=== PATIENT | female | born 1975 | race African-American/Black ===

== ENCOUNTER 2016-12-06 05:15 | Emergency (ER) | payer BC ==
--- NOTE | ~2016-12-06 | CT71 ---
[facility] A Service of [facility] RADIOLOGY TEXT RESULTS PATIENT: YONI CROCKER LOCATION: [facility] : 73 UNIT #: [id number] AGE: [address]: Matt Solorio MD SEX: F ORDER DR: [id number] [facility] [address] [place], [place] [address] [id number] E MR#: [id number] Acc #: [id number] NAME: YONI CROCKER : 1975 SEX: F STUDY DATE/TIME: 12/06/2016 6:15 UNIT: LAYO ROOM: STUDY DESCRIPTION: CT Head Wo Contrast Attending Physician: Matt Solorio M.D. Ordering Physician: Matt Solorio M.D. Primary Care Physician: Brunilda Robles M.D. MEDICAL IMAGING REPORT This report is preliminary unless electronic signature is present EXAM CT scan of the head without contrast. HISTORY Weakness, headache, dizziness since yesterday. TECHNIQUE Axial noncontrast images were obtained from the skull base to the vertex. This CT exam was performed with one or more of the following radiation dose reduction techniques: automatic exposure control, adjustment of mA and/or kV according to patient size, and iterative reconstruction. FINDINGS Ventricular size and configuration are normal. There is no evidence of acute infarct or hemorrhage. There are no extraaxial fluid collections. No mass lesion or mass effect is seen. There are no skull fractures. IMPRESSION Normal noncontrast head CT. Dictated by... Lucas Clifford M.D. THIS IS AN ELECTRONICALLY VERIFIED REPORT Lucas Clifford M.D. at 12/06/2016 12:21 PM SYDNEE/taylor TD: 12/06/2016 08:11 [facility] A Service [facility] RADIOLOGY TEXT RESULTS PATIENT: YONI CROCKER LOCATION: [facility] : 73 UNIT #: [id number] AGE: [address]: Matt Solorio MD SEX: F ORDER DR: MATTHEW #: [id number] MEDICAL IMAGING REPORT Page 1 of 1 COPY
--- NOTE | ~2016-12-06 | CR72 ---
[facility] A Service of [facility] RADIOLOGY TEXT RESULTS PATIENT: YONI CROCKER LOCATION: [facility] : 73 UNIT #: [id number] AGE: [address]: Matt Solorio MD SEX: F ORDER DR: [id number] [facility] [address] [place], [place] [address] [id number] E MR#: [id number] Acc #: [id number] NAME: YONI CROCKER : 1975 SEX: F STUDY DATE/TIME: 12/06/2016 6:19 UNIT: [facility] ROOM: STUDY DESCRIPTION: CR Chest Single View Portable Attending Physician: Matt Solorio M.D. Ordering Physician: Matt Solorio M.D. Primary Care Physician: Brunilda Robles M.D. MEDICAL IMAGING REPORT This report is preliminary unless electronic signature is present EXAM Portable chest, 12/06 COMPARISON 01/01/2016 HISTORY Syncope, shortness of air and dizziness tonight. FINDINGS A portable view of the chest was obtained. The heart size and vascularity are normal and the lungs are clear. The bones are unremarkable. IMPRESSION No active disease. Dictated by... Lucas Clifford M.D. THIS IS AN ELECTRONICALLY VERIFIED REPORT Lucas Clifford M.D. at 12/06/2016 12:22 PM SYDNEE/connie TD: 12/06/2016 08:09 JOB #: [id number] MEDICAL IMAGING REPORT Page 1 of 1 COPY
--- NOTE | ~2016-12-06 | EKG ---
PATIENT: YONI CROCKER UNIT #: [id number] Ventricular Rate: 84 BPM Atrial Rate: 84 BPM P-R Interval: 162 ms QRS Duration: 82 ms Q-T Interval: 356 ms QTC Calculation(Bezet): 420 ms P [place]: 50 degrees Calculated R [place]: 21 degrees Calculated T [place]: 36 degrees Diagnosis Line: Normal sinus rhythm Diagnosis Line: Normal ECG Diagnosis Line: When compared with ECG of 01-JAN-2016 08:51, Diagnosis Line: Criteria for Inferior infarct are no longer Diagnosis Line: Present Diagnosis Line: T wave inversion no longer evident in Inferior Diagnosis Line: leads Diagnosis Line: Confirmed by RJ JAIN MD ([id number]) on 12/07/2016 Diagnosis Line: 9:58:00 AM INTERPRETING MD: CRISTOBAL MCCORMACK
[~2016-12-06 05:15] MED LIST: IBUPROFEN800 MG PO
[2016-12-06 06:08] LABS: POC - CKMB <1.0 ng/mL (0.0-7.9); POC - TROPONIN <0.05 ng/mL (<=0.05)
[2016-12-06 06:13] LABS: BASOPHIL% 0.2 % (0-2.5); EOSINOPHIL% 0.2 % (0.0-7.0); HEMATOCRIT 42.6 % (35.0-45.0); HEMOGLOBIN 13.9 gm/dL (12.0-16.0); LYMPHOCYTE# 0.5 X10e3 (1.0-3.5); MEAN CELL VOLUME 84.9 FL (83-96); MEAN CORPUSCULAR HEMOGLOBIN 27.7 PG (28-34); MEAN CORPUSCULAR HGB CONC 32.7 g/dL (30-36); MONOCYTE# 0.5 X10e3 (0-1.0); NEUTROPHIL# 7.2 X10e3 (1.5-7.1); NEUTROPHIL% 87.6 % (40-75); PLATELET COUNT 160 X10e3 (140-420); RED BLOOD COUNT 5.02 X10e (3.90-5.30); RED CELL DISTRIBUTION WIDTH 13.6 % (11.0-15.5); WHITE BLOOD COUNT 8.2 X10e3 (4.0-10.5)
[2016-12-06 06:15] LABS: DIFF IND NO
[2016-12-06 06:19] LABS: URINE SOURCE CLEAN CATCH
[2016-12-06 06:29] LABS: URINE APPEARANCE CLEAR; URINE BILIRUBIN NEG (NEG); URINE BLOOD 1+ (NEG); URINE COLOR DK YELLOW; URINE GLUCOSE NEG (NEG); URINE KETONE NEG (NEG); URINE LEUKOCYTE ESTERASE TRACE (NEG); URINE NITRATE NEG (NEG); URINE PROTEIN 1+ (NEG)
[2016-12-06 06:32] LABS: CULTURE INDICATED? YES; URINE BACTERIA AUWI 2+ (NEGATIVE); URINE SQUAMOUS EPITHELIAL CELL OCC /[HPF]
[2016-12-06 06:49] LABS: ALBUMIN SERUM 3.8 g/dL (3.5-5.0); BILIRUBIN, DIRECT 0.2 mg/dL (0.0-0.2); BILIRUBIN,TOTAL 1.2 mg/dL (0.2-2.0); BUN/CREATININE RATIO 22.85; CALCIUM SERUM 8.8 mg/dL (8.4-10.2); CREATININE SERUM 0.7 mg/dL (0.6-1.4); GLOM FILT RATE Estimated 123.9 mL/min (>60); POTASSIUM 3.5 mmol/L (3.5-5.1); PROTEIN TOTAL SERUM 7.9 g/dL (6.0-8.3)
[2016-12-06 08:25] LABS: POC - CKMB <1.0 ng/mL (0.0-7.9); POC - TROPONIN <0.05 ng/mL (<=0.05)
== END 2016-12-06 09:05 | disposition home or self-care (01) ==
LOC: CED 05:15
PROVIDERS: Emergency Medicine; Student in an Organized Health Care Education/Training Program
DX: R42 Dizziness and giddiness (principal); R19.7 Diarrhea, unspecified; F17.200 Nicotine dependence, unspecified, uncomplicated; Z88.0 Allergy status to penicillin
CPT/HCPCS: 36415; 70450; 71010; 80048; 80076; 81003; 82553; 82947; 83690; 84484; 84703; 85025; 87086; 87088; 87186; 93005; 96361; 96374; 99284; J2405